=== PATIENT | female | born 1995 | race American Indian/Alaskan Native ===

== ENCOUNTER 2020-07-17 15:34 | Emergency (ER) | payer MEDICAID ==
--- NOTE | 2020-07-17 16:20 | Event Note ---
ED Screening Note ED Screening Note: lower abd cramping for a couple of days denies any vaginal bleeding +nausea intermittent vomiting no diarrhea no fever no dysuria hx of ectopic /P:0/A:1 LNMP april 13 This initial assessment/diagnostic orders/clinical plan/treatment(s) is/are subject to change based on patients health status, clinical progression and re- assessment by fellow clinical providers in the ED. Further treatment and workup at subsequent clinical providers discretion. Patient/guardian urged not to elope from the ED as their condition may be serious if not clinically assessed and managed. Initial orders include: labs, UA, US
[2020-07-17 16:22] VITALS: BP 129/76
[2020-07-17 17:05] LABS: Bilirubin,Urine NEG (Negative); Blood,Urine NEG (Negative); Calcium Oxalate Crystals,Urine 2+; Color,Urine Yellow (Yellow); Mucus,Urine FEW /HPF; Protein,Urine <15 mg/dL mg/dL (Negative); Urobilinogen,Urine < 2.0 mg/dL (<2.0)
[2020-07-17 17:05] LABS: Basophils # (Auto) 0.1 K/mm3 (0.0-0.1); Basophils % (Auto) 0.7 % (0.0-1.8); Eosinophils # (Auto) 0.2 K/mm3 (0.0-0.4); Eosinophils % (Auto) 3.2 % (0.0-4.3); Hematocrit 37.1 % (30.3-42.9); Hemoglobin 12.8 gm/dl (10.1-14.3); Lymphocytes # (Auto) 1.7 K/mm3 (1.2-5.4); Lymphocytes % (Auto) 23.5 % (13.4-35.0); Mean Corpuscular HGB Conc 35 % (30-34); Mean Corpuscular Volume 86 fl (79-97); Monocytes # (Auto) 0.7 K/mm3 (0.0-0.8); Monocytes % (Auto) 9.7 % (0.0-7.3); Platelet Count 255 K/mm3 (140-440); Red Blood Count 4.29 M/mm3 (3.65-5.03); Red Cell Distribution Width 13.2 % (13.2-15.2)
[2020-07-17 17:26] LABS: Alanine Aminotransferase 11 units/L (7-56); Albumin 3.7 g/dL (3.9-5); Blood Urea Nitrogen 8 mg/dL (7-17); Calcium 9.4 mg/dL (8.4-10.2); Hemolysis Index 5
[2020-07-17 17:34] LABS: BUN/Creatinine Ratio 11
--- NOTE | 2020-07-17 18:15 | Ultrasound Report ---
ULTRASOUND OBSTETRIC REASON FOR EXAM: , cramping TECHNIQUE: Transabdominal ultrasound was performed to evaluate . COMPARISON: None. FINDINGS: FINDINGS: There is a single live intrauterine with crown-rump length measuring 7.4 cm, corresponding to a gestational age of 13 weeks 4 days. heart rate measures 181 bpm. No evidence of perigestat ional hemorrhage. MATERNAL FINDINGS: The uterus measures 12.1 x 7.9 x 9.9 cm. No myometrial mass. The ovaries are not visualized. Cul-de-sac: There is no free fluid. IMPRESSION: Single live intrauterine with heart rate measuring 181 bpm. Gestational age is 13 wee ks for days by ultrasound, consistent with the patient's LMP. Recommend clinical screening and ultras ound follow-up in the second trimester to screen for anomalies. Signer Name: Vinicius Parisi MD Signed: 07/17/2020 6:10 PM Workstation Name: [id number]
--- NOTE | 2020-07-17 19:14 | Emergency Department Report ---
ED HPI - General Chief complaint: Abdominal Pain Stated complaint: CRAMPS Time Seen by Provider: 07/17/20 16:18 Source: patient Mode of arrival: Ambulatory Limitations: No Limitations - History of Present Illness Initial comments: pt is a 25 yo female who presents to the ED with c/o lower abd cramping for a couple of days denies any vaginal bleeding +nausea intermittent vomiting she is tolerating PO intake, she mostly just gets morning sickness no diarrhea no fever no dysuria hx of ectopic /P:0/A:1 LNMP april 13 states has appt with cancer center director on 07/21/20 - Related Data Allergies Allergy/AdvReac Type Severity Reaction Status Date / Time No Known Allergies Allergy Unverified 07/17/20 15:54 ED Review of Systems ROS: Stated complaint: CRAMPS Other details as noted in HPI Comment: All other systems reviewed and negative ED Past Medical Hx - Past Medical History Previous Medical History?: No - Surgical History Past Surgical History?: No - Social History Smoking Status: Never Smoker Substance Use Type: None ED Physical Exam - General Limitations: No Limitations General appearance: alert, in no apparent distress - Head Head exam: Present: atraumatic, normocephalic - Eye Eye exam: Present: normal appearance - ENT ENT exam: Present: mucous membranes moist - Respiratory Respiratory exam: Present: normal lung sounds bilaterally. Absent: respiratory distress, wheezes, rales, rhonchi, stridor, chest wall tenderness, accessory muscle use, decreased breath sounds, prolonged expiratory - Cardiovascular Cardiovascular Exam: Present: regular rate, normal rhythm, normal heart sounds. Absent: systolic murmur, diastolic murmur, rubs, gallop - GI/Abdominal GI/Abdominal exam: Present: soft, normal bowel sounds. Absent: distended, tenderness, guarding, rebound, rigid - Neurological Exam Neurological exam: Present: alert, oriented X3 - Psychiatric Psychiatric exam: Present: normal affect, normal mood - Skin Skin exam: Present: warm, dry, intact ED Course Vital Signs 07/17/20 15:40 Temperature 98.2 F Pulse Rate 86 Respiratory 18 Rate Blood Pressure 129/76 O2 Sat by Pulse 98 Oximetry ED Medical Decision Making - Lab Data Result diagrams: 07/17/20 16:48 07/17/20 16:48 Lab Results 07/17/20 07/17/20 07/17/20 Range/Units 16:48 16:48 16:48 WBC 7.2 (4.5-11.0) K/mm3 RBC 4.29 (3.65-5.03) M/mm3 Hgb 12.8 (10.1-14.3) gm/dl Hct 37.1 (30.3-42.9) % MCV 86 (79-97) fl MCH 30 (28-32) pg MCHC 35 H (30-34) % RDW 13.2 (13.2-15.2) % Plt Count 255 (140-440) K/mm3 Lymph % (Auto) 23.5 (13.4-35.0) % [place] % (Auto) 9.7 H (0.0-7.3) % Eos % (Auto) 3.2 (0.0-4.3) % Baso % (Auto) 0.7 (0.0-1.8) % Lymph # (Auto) 1.7 (1.2-5.4) K/mm3 [place] # (Auto) 0.7 (0.0-0.8) K/mm3 Eos # (Auto) 0.2 (0.0-0.4) K/mm3 Baso # (Auto) 0.1 (0.0-0.1) K/mm3 Seg Neutrophils % 62.9 (40.0-70.0) % Seg Neutrophils # 4.5 (1.8-7.7) K/mm3 Sodium 133 L (137-145) mmol/L Potassium 3.8 (3.6-5.0) mmol/L Chloride 104.7 (98-107) mmol/L Carbon Dioxide 21 L (22-30) mmol/L Anion Gap 11 mmol/L BUN 8 (7-17) mg/dL Creatinine 0.7 (0.6-1.2) mg/dL Estimated GFR > 60 ml/min BUN/Creatinine Ratio 11 % Glucose 93 (65-100) mg/dL Calcium 9.4 (8.4-10.2) mg/dL Total Bilirubin < 0.20 (0.1-1.2) mg/dL AST 14 (5-40) units/L ALT 11 (7-56) units/L Alkaline Phosphatase 46 (35-129) units/L Total Protein 6.9 (6.3-8.2) g/dL Albumin 3.7 L (3.9-5) g/dL Albumin/Globulin Ratio 1.2 % HCG, Quant 56184 H (0-4) mIU/mL Urine Color (Yellow) Urine Turbidity (Clear) Urine pH (5.0-7.0) Ur Specific [place] (1.003-1.030) Urine Protein (Negative) mg/dL Urine Glucose (UA) (Negative) mg/dL Urine Ketones (Negative) mg/dL Urine Blood (Negative) Urine Nitrite (Negative) Urine Bilirubin (Negative) Urine Urobilinogen (<2.0) mg/dL Ur Leukocyte Esterase (Negative) Urine WBC (Auto) (0.0-6.0) /HPF Urine RBC (Auto) (0.0-6.0) /HPF U Epithel Cells (Auto) (0-13.0) /HPF Calcium Oxalate Crystal Urine Mucus /HPF Blood Type 07/17/20 07/17/20 Range/Units 16:48 Unknown WBC (4.5-11.0) K/mm3 RBC (3.65-5.03) M/mm3 Hgb (10.1-14.3) gm/dl Hct (30.3-42.9) % MCV (79-97) fl MCH (28-32) pg MCHC (30-34) % RDW (13.2-15.2) % Plt Count (140-440) K/mm3 Lymph % (Auto) (13.4-35.0) % [place] % (Auto) (0.0-7.3) % Eos % (Auto) (0.0-4.3) % Baso % (Auto) (0.0-1.8) % Lymph # (Auto) (1.2-5.4) K/mm3 [place] # (Auto) (0.0-0.8) K/mm3 Eos # (Auto) (0.0-0.4) K/mm3 Baso # (Auto) (0.0-0.1) K/mm3 Seg Neutrophils % (40.0-70.0) % Seg Neutrophils # (1.8-7.7) K/mm3 Sodium (137-145) mmol/L Potassium (3.6-5.0) mmol/L Chloride (98-107) mmol/L Carbon Dioxide (22-30) mmol/L Anion Gap mmol/L BUN (7-17) mg/dL Creatinine (0.6-1.2) mg/dL Estimated GFR ml/min BUN/Creatinine Ratio % Glucose (65-100) mg/dL Calcium (8.4-10.2) mg/dL Total Bilirubin (0.1-1.2) mg/dL AST (5-40) units/L ALT (7-56) units/L Alkaline Phosphatase (35-129) units/L Total Protein (6.3-8.2) g/dL Albumin (3.9-5) g/dL Albumin/Globulin Ratio % HCG, Quant (0-4) mIU/mL Urine Color Yellow (Yellow) Urine Turbidity Clear (Clear) Urine pH 7.0 (5.0-7.0) Ur Specific [place] 1.014 (1.003-1.030) Urine Protein <15 mg/dl (Negative) mg/dL Urine Glucose (UA) Neg (Negative) mg/dL Urine Ketones Neg (Negative) mg/dL Urine Blood Neg (Negative) Urine Nitrite Neg (Negative) Urine Bilirubin Neg (Negative) Urine Urobilinogen < 2.0 (<2.0) mg/dL Ur Leukocyte Esterase Neg (Negative) Urine WBC (Auto) 1.0 (0.0-6.0) /HPF Urine RBC (Auto) 2.0 (0.0-6.0) /HPF U Epithel Cells (Auto) 3.0 (0-13.0) /HPF Calcium Oxalate Crystal 2+ Urine Mucus Few /HPF Blood Type A POSITIVE Vital Signs 07/17/20 15:40 Temperature 98.2 F Pulse Rate 86 Respiratory 18 Rate Blood Pressure 129/76 O2 Sat by Pulse 98 Oximetry - Radiology Data Radiology results: report reviewed Ordering Physician: BARBARA MOORE Date of Service: 07/17/20 Procedure(s): US OB <= 14 weeks fetus Accession Number(s): [id number] cc: BARBARA MOORE ULTRASOUND OBSTETRIC REASON FOR EXAM: , cramping TECHNIQUE: Transabdominal ultrasound was performed to evaluate . COMPARISON: None. FINDINGS: FINDINGS: There is a single live intrauterine with crown-rump length measuring 7.4 cm, corresponding to a gestational age of 13 weeks 4 days. heart rate measures 181 bpm. No evidenc e of perigestational hemorrhage. MATERNAL FINDINGS: The uterus measures 12.1 x 7.9 x 9.9 cm. No myometrial mass. The ovaries are not visualized. Cul-de-sac: There is no free fluid. IMPRESSION: Single live intrauterine with heart rate measuring 181 bpm. Gestational age is 13 weeks for days by ultrasound, consistent with the patient's LMP. Recommend clinical screening and ultrasound follow-up in the second trimester to screen for anomalies. Signer Name: Shannan Parisi MD Signed: 07/17/2020 6:10 PM Workstation Name: [id number] Transcribed By: NIKOS Dictated By: SHANNAN MONTES MD Electronically Authenticated By: SHANNAN MONTES MD Signed Date/Time: 07/17/201809 DD/ 07 TD/TT: - Medical Decision Making pt is a 25 yo female who presents to the ED with c/o lower abd cramping for a couple of days denies any vaginal bleeding +nausea intermittent vomiting she is tolerating PO intake, she mostly just gets morning sickness no diarrhea no fever no dysuria hx of ectopic /P:0/A:1 LNMP april 13 states has appt with cancer center director on 07/21/20 Vitals are stable. No abdominal tenderness on exam, no guarding, rebound, no rigidity, normal bowel sounds. Labs are stable, very mild dehydration, and encouraged to increase oral intake, she is tolerating [place] [address]. UA is within normal limits. Patient is Rh+. OB ultrasound:Single live intrauterine with heart rate measuring 181 bpm. Gestational age is 13 weeks for days by ultrasound, consistent with the patient's LMP. Recommend clinical screening and ultrasound follow-up in the second trimester to screen for anomalies. Discussed all findings with patient and answered questions. Patient given her ultrasound report. Discussed the importance of [facility] follow- up. Advised patient May take Tylenol as needed for discomfort. Increase your water intake. Please practice pelvic rest. Please take [id number] vitamin. Follow-up with your [facility]. Return to emergency room for any new or worsening symptoms. - Differential Diagnosis IUP, ectopic, UTI, ovarian cyst, fibroids, miscarriage, placenta previa Critical care attestation.: If time is entered above; I have spent that time in minutes in the direct care of this critically ill patient, excluding procedure time. ED Disposition Clinical Impression: Abdominal pain during Qualifiers: Trimester: second trimester Qualified Code(s): O26.892 - Other specified related conditions, second trimester Disposition: DC-01 TO HOME OR SELFCARE Is pt being admited?: No Does the pt Need Aspirin: No Condition: Stable Instructions: Abdominal Pain During , Abdominal Pain (ED) Additional Instructions: May take Tylenol as needed for discomfort. Increase your water intake. Please practice pelvic rest. Please take [id number] vitamin. Follow-up with your [facility]. Return to emergency room for any new or worsening symptoms. Referrals: your, cancer center director [Other] - 2-3 Days Time of Disposition: 19:15 Print Language: LITHUANIAN
== END 2020-07-17 19:26 | disposition home or self-care (01) ==
LOC: ED 15:34
DX: O26.891 Other specified pregnancy related conditions, first trimester (principal); R10.30 Lower abdominal pain, unspecified; Z3A.13 13 weeks gestation of pregnancy
CPT/HCPCS: 36415; 76801; 80053; 81001; 84702; 85025; 86900; 86901